=== PATIENT | female | born 1965 | race Caucasian/White ===

== ENCOUNTER 2016-09-29 23:56 | Emergency (ER) | payer BC, OTHER ==
[2016-09-30] MEDS ORDERED: KETOROLAC TROMETHAMINE 30 MG/ML SOL IM ONE (00:07)
[2016-09-30] MEDS ORDERED: KETOROLAC TROMETHAMINE 30 MG/ML SOL ONE (00:08)
[2016-09-30] MEDS ORDERED: APAP/OXYCODONE 325/5 TAB PO ONE (00:45)
[2016-09-30 00:52] VITALS: BP 131/78; PULSE 95; RESP 20; TEMP 99.7; O2SAT 95
== END 2016-09-30 01:04 | disposition home or self-care (01) ==
LOC: ED 23:56
DX: S82.65XA Nondisplaced fracture of lateral malleolus of left fibula, initial encounter for closed fracture (principal); X50.1XXA Overexertion from prolonged static or awkward postures, initial encounter
CPT/HCPCS: 99283 ×3; J1885; 73610; 96372; L4360